=== PATIENT | male | born 1975 | race Two or more races ===

== ENCOUNTER 2024-05-19 07:24 | Emergency (ER) | payer MEDICAID, SELFPAY ==
[2024-05-19 07:34] VITALS: BP 117/75; PULSE 81; RESP 16; TEMP 37.2; O2SAT 97; BMI 29.3
--- NOTE | 2024-05-19 07:37 | XR_ITS ---
Examination: CT abdomen and pelvis without contrast. Coronal 3-D reconstructions. Sagittal 2-D reconstructions. Date and time of exam:May 19, 2024 at 0801 hrs. Comparison May 15, 2022 Indications: Painful urination lower pelvic pain beginning last night, history kidney stones on CT study May 15, 2022 CTDI: vol (mGy): 8.46 DLP: (mGycm): 537 Technique: Axial images of the abdomen have been obtained, 3 mm slice thickness Intravenous contrast material has not been administered. Low dose protocols were performed. One or more of the following dose reduction techniques were used; automated exposure control, adjustment of the mA and/or KV according to patient size, use of iterative reconstruction technique. Findings: Trace pericardial thickening No liver or splenic lesion No gallstones No pancreatic or adrenal mass. Moderate left mild right renal parenchymal scar formation 1 mm 4 mm lower pole left renal calculi Minimal dilatation left renal calyces and proximal left ureter without ureteral calculi Aorta normal size Normal appendix No bowel obstruction No diverticulitis Normal seminal vesicles No prostatomegaly Contracted urinary bladder, minimal wall thickening Fat-containing inguinal hernias Impression: Moderate left mild right renal parenchymal scar formation Nonobstructing left renal calculi Minimal dilatation left renal calyces and proximal left ureter, consider urinary tract infection Cystitis pattern
[2024-05-19] MEDS: KETOROLAC INJ 30 MG/ML VIAL IM (07:47)
[2024-05-19] MEDS: HYDROcodone/APAP 5/325 TABLET 1 TAB PO (07:47)
[2024-05-19 07:57] LABS: Collection Type, Urine Clean Catch; Squamous Epithelial Cell,Urine 0 /hpf (0-5)
[2024-05-19 08:09] LABS: Basophils % (Auto) 1 % (0-2.5); Eosinophils # (Auto) 0.1 Thou/mm3 (0.0-0.5); Eosinophils % (Auto) 4 % (0-10); Hematocrit 42.1 % (41.0-53.0); Hemoglobin 14.5 g/dL (13.5-16.0); Immature Granulocytes % (Auto) 1 % (0-0); Immature Granulocytes Auto 0.02 Thou/mm3 (0.00-0.00); Lymphocytes # (Auto) 1.7 Thou/mm3 (1.0-4.8); Lymphocytes % (Auto) 54 % (10-50); Mean Corpuscular HGB Conc 34.4 g/dl (31.0-37.0); Mean Corpuscular Hemoglobin 30.3 pg (25.0-35.0); Mean Corpuscular Volume 88 fL (80-100); Monocytes # (Auto) 0.4 Thou/mm3 (0.0-0.8); Monocytes % (Auto) 11 % (0-12); Neutrophils # (Auto) 0.9 Thou/mm3 (1.8-7.7); Neutrophils % (Auto) 28 % (37-80); Nucleated Red Blood Cell % 0 /100 WBC (0); Platelet Count 225 Thou/mm3 (140-440); RDW Standard Deviation 43.6 fL (35.1-43.9); Red Blood Count 4.78 Miln/mm3 (4.50-5.90); White Blood Count 3.2 Thou/mm3 (3.8-10.6)
[2024-05-19 08:15] LABS: Bilirubin,Urine Negative (Negative); Blood,Urine Negative (Negative); Clarity,Urine Clear (Clear/Hazy); Color,Urine Lt-Yellow (Lt Yel-Yel); Culture Indicated,Urine Not Indicated; Glucose, Urine Negative (Negative); Ketones,Urine Negative (Negative); Leukocyte Esterase,Urine Negative (Negative); Nitrite,Urine Negative (Negative); Protein,Urine Negative (Neg - Trace); RBC,Urine 1 /hpf (0-3); Specific Gravity,Urine 1.024 (1.001-1.035); Urobilinogen,Urine Negative mg/dL (0.0-1.0); WBC,Urine 1 /hpf (0-5)
[2024-05-19 08:19] LABS: Alanine Aminotransferase 39 U/L (10-49); Albumin, Serum 4.5 gm/dL (3.5-5.0); Albumin/Globulin Ratio 1.6 (1.2-2.2); Alkaline Phosphatase 66 U/L (46-116); Anion Gap 4 (7-16); Aspartate Amino Transferase 25 U/L (0-34); BUN/Creatinine Ratio 14 Ratio (12-20); Bilirubin,Total 0.6 mg/dL (0.3-1.2); Blood Urea Nitrogen 14 mg/dL (9-23); Calcium 9.6 mg/dL (8.3-10.6); Calcium (Corrected) 9.6 mg/dL (8.5-10.1); Carbon Dioxide 27.3 mMol/L (20.0-31.0); Chloride 102 mMol/L (98-107); Estimated Creatinine Clearance 91.1 mL/min (>60); Globulin 2.9 gm/dL (2.3-3.5); Glucose 219 mg/dL (74-106); Lipase 36 U/L (12-53); Osmolality,Calculated 273 (275-295); Sodium 133 mMol/L (136-145); Total Protein 7.4 gm/dL (5.7-8.2); eGFR > 60 See Note
--- NOTE | 2024-05-19 08:50 | EDNOTE_ITS ---
ED Male Genitalurinary RME/HPI General Chief complaint: Urogenital-Male Stated complaint: BURNING W/URINATION Time Seen by Provider: 05/19/24 07:27 Arrival date/time: 05/19/24 07:24 49-year-old male presents to the emergency department today with complaints of dysuria patient reports history of renal stone patient reports no fever nausea vomiting Limitations: no limitations Related Data Previous Rx's ?Medication ?Instructions ?Recorded ondansetron 4 mg disintegrating 4 mg PO Q8H PRN nausea and 07/25/20 tablet vomiting #14 tabs hydrocodone 5 mg-acetaminophen 325 1 tab PO Q8H PRN pain #10 tabs 05/15/22 mg tablet ciprofloxacin HCl 500 mg tablet 500 mg PO BID 7 days #14 tabs 05/19/24 ibuprofen 800 mg tablet 800 mg PO TID PRN pain #30 tabs 05/19/24 Allergies Allergy/AdvReac Type Severity Reaction Status Date / Time No Known Allergies Allergy Verified 05/19/24 07:26 Review of Systems Review of Systems Systems Reviewed: All systems reviewed, normal except as documented Constitutional Constitutional: Reports system reviewed and no additional complaints, except as documented, Denies fever(s) and Denies headache(s) Eyes Eyes: Reports system reviewed and no additional complaints, except as documented and Denies blurry vision ENT Ears, Nose, Mouth, and Throat: Reports system reviewed and no additional complaints, except as documented, Denies headache(s), Denies nasal congestion and Denies nasal discharge Cardiovascular Cardiovascular: Reports system reviewed and no additional complaints, except as documented, Denies chest pain and Denies dyspnea Respiratory Respiratory: Reports system reviewed and no additional complaints, except as do cumented, Denies chest congestion, Denies cough and Denies dyspnea Gastrointestinal Gastrointestinal: Reports system reviewed and no additional complaints, except as documented and Denies abdominal pain Genitourinary Genitourinary: Reports system reviewed and no additional complaints, except as documented and Reports other (Dysuria) Integumentary/Breasts Skin/Breast: Reports system reviewed and no additional complaints, except as documented and Denies rash Neurologic Neurologic: Reports system reviewed and no additional complaints, except as documented, Reports as per HPI and Denies headache(s) Past Medical History Past Medical History CARDIAC: Positive Hypercholesterolemia; Negative Cardiac Disorders or Congestive Heart Failure RESPIRATORY: Negative Chronic Obstructive Pulmonary Disease (COPD) or Asthma GENITOURINARY: Negative Renal Disease ENDOCRINE: Negative Diabetes Mellitus Type 1 or Diabetes Mellitus Type 2 HEMATOLOGIC: Negative Sickle Cell Disease Social History SMOKING STATUS: Never smoker SUBSTANCE USE: does not use ED Exam General Limitations: Present no limitations General appearance: Present alert and in no apparent distress Head Head exam: Present atraumatic, normocephalic and normal inspection Eye Eye exam: Present normal appearance, PERRL and EOMI; Absent conjunctival injection ENT ENT exam: Present normal exam, normal oropharynx and mucous membranes moist Neck Neck exam: Present normal inspection, full ROM and trachea midline Chest Chest inspection: Present normal inspection and symmetric chest wall rise Respiratory Respiratory exam: Present normal lung sounds bilaterally; Absent respiratory distress Cardiovascular Cardiovascular exam: Present regular rate, normal rhythm and normal heart sounds Abdominal Exam Abdominal exam: Present soft; Absent distention, tenderness, guarding, rebound or rigidity Extremities Exam Extremities exam: Present normal inspection and full ROM Back Exam Back exam: Present normal inspection and full ROM Neurological Exam Neurological exam: Present alert, oriented X3 and CN II-XII intact Psychiatric Psychiatric exam: Present normal affect and normal mood Skin Skin exam: Present warm, dry, intact and normal color Course Quality Measures none Orders Category Date Time Status CT abdomen pelvis wo con Stat Exams 05/19/24 07:37 Completed A1C [Glycohemoglobin w (eAG)] Stat Lab 05/19/24 07:49 Completed CBC Stat Lab 05/19/24 07:49 Completed Comprehensive Metabolic Panel Stat Lab 05/19/24 07:49 Completed Lipase Stat Lab 05/19/24 07:49 Completed UA, C/S IF [Urinalysis, C/S if Indicated] Stat Lab 05/19/24 07:50 Completed HYDROcodone*/APAP 5/325 [[place] 5/325] Med 05/19/24 07:38 Discontinued 1 tab PO X1 ONE Ketorolac Inj [Toradol Inj] Med 05/19/24 07:38 Discontinued 30 mg IM X1 ONE Vital Signs Vital signs: Vital Signs Temperature 98.9 F 05/19/24 07:34 Pulse Rate 81 05/19/24 07:34 Respiratory Rate 16 05/19/24 07:34 Blood Pressure 117/75 05/19/24 07:34 Pulse Oximetry (%) 97 05/19/24 07:34 Oxygen Delivery Method Room Air 05/19/24 07:34 O2 saturation 97% room air within normal limits Urogenital - Male MDM Narrative MDM Narrative:: 49-year-old male presents to the emergency department today with complaints of dysuria patient reports history of renal stone patient reports no fever nausea vomiting On exam patient does not appear ill or toxic in no acute distress Patient is nontender abdomen Lab work obtained lab work unremarkable other than the patient's blood sugar is elevated As patient has dysuria CT scan consistent with cystitis patient will treat with course of antibiotics A1c obtained does confirm diabetes I explained to the patient before he left that I would contact his brother who is a physician and he will speak with him about the results of the A1c he gave me permission to do this Patient's A1c did come back elevated I spoke with patient's brother Dr. Silva who will discuss further management of the diabetes Patient discharged home in no distress to follow-up with primary care doctor in the next 24 to 48 hours and for any worsening symptoms to return to the ER immediately Patient data External records reviewed:: [facility] previous records Clinical information provided by:: patient Social determinants that could affect healthcare access:: none Patient has the following chronic illnesses:: none How is presenting disease/condition affected by chronic disease/condition?: uneffected by Evaluation data The following diagnostics were reviewed and interpreted by me:: lab results and radiology exam(s) Lab and/or radiology exams considered but not ordered:: Labs radiology obtain Interpretation Summary: Reviewed by me Medications / Prescriptions Medications or Prescriptions considered but not ordered:: Given Medication administrations:: Medication Administration History Discontinued Medications Hydrocodone Bitart/Acetaminophen (Hydrocodone/Apap 5/325 Tablet) 1 tab PO X1 ONE Stop: 05/19/24 07:39 Last Admin: 05/19/24 07:47 Dose: 1 tab Documented By: DO Ketorolac Tromethamine (Ketorolac Inj 30 Mg/Ml Vial) 30 mg IM X1 ONE Stop: 05/19/24 07:39 Last Admin: 05/19/24 07:47 Dose: 30 mg Documented By: DO given Consultations Consultation(s) initiated? (list below): No Diagnosis Urogenital Male Differential Diagnosis: urinary tract infection and other (Cystitis) Most likely diagnosis given after review of the tests above:: Cystitis Admission Indicated Admission indicated?: not indicated Admission Request Was there a request for admission?: No Disposition Plan Disposition Plan: Discharge Discharge Attestation Discharge Attestation: The patient and all family members were given an opportunity to ask questions and understood the discharge instructions. Discharge instructions specifically effects, indications for sooner follow up or return to the emergency department, and the expected course of current diagnosis. Patient condition: Stable Discharge Plan Plan Patient Disposition: HOME (Self Care) Disposition Comment: stable Prescriptions/Referrals Prescriptions/Med Rec: New ibuprofen 800 mg tablet 800 mg PO TID PRN (Reason: pain) Qty: 30 0RF ciprofloxacin HCl 500 mg tablet 500 mg PO BID 7 Days Qty: 14 0RF No Action ondansetron 4 mg tablet,disintegrating 4 mg PO Q8H PRN (Reason: nausea and vomiting) Qty: 14 0RF hydrocodone-acetaminophen 5-325 mg tablet 1 tab PO Q8H MDD 10 PRN (Reason: pain) Qty: 10 0RF Referrals: Jose Luis Gabriel MD [Primary Care Provider] - 05/20/24 Problem List Clinical Impression: Cystitis Patient/Caregiver Discharge Instructions Education Materials: Understanding Urinary Tract ... Additional Instructions: Please follow up with your primary care doctor in the next 24-48hrs for any worsening symptoms return here immediately Print Language: Turkish Stand Alone Forms: Emiila Award Info., Patient Portal Info Letter PA/NEHEMIAH Supervising Physician ESSENCE/NEHEMIAH Supervising Physician: dr schwartz
[2024-05-19 08:53] LABS: Glucose Estimated Average 166 mg/dL (80-131); Hemoglobin A1C 7.4 % Hgb (4.8-6.0)
== END 2024-05-19 08:59 | disposition home or self-care (01) ==
PROVIDERS: Nurse Practitioner Primary Care; Emergency Provider Emergency Medicine; PCP Family Medicine
DX: N30.90 Cystitis, unspecified without hematuria (principal)
CPT/HCPCS: 36415; 74176; 80053; 81001; 83036; 83690; 85025; 96372; 99284; J1885; A9270

== ENCOUNTER 2024-10-20 08:36 | Emergency (ER) | payer MEDICAID, SELFPAY ==
[2024-10-20 08:58] VITALS: BP 139/80; PULSE 99; RESP 16; TEMP 36.7; O2SAT 97
[2024-10-20 09:06] VITALS: BMI 29.7
--- NOTE | 2024-10-20 09:28 | PD.EDRME ---
Rapid Medical Screening Exam RME Arrival date/time: 10/20/24 08:36 This is a 49-year-old male comes in with complaints of dysuria. Patient states he has a history of kidney stones. Patient has also had UTIs in the past. I have greeted and performed a focused initial assessment of this patient. Initial appropriate labs ordered at this time. A comprehensive ED assessment and evaluation of the patient and analysis of all test and completion of medical decision making process will be conducted by additional ED provider. Chief Complaint: Urogenital-Male Time Seen by Provider: 10/20/24 09:08 Vital signs: Vital Signs Temperature 98.1 F 10/20/24 08:58 Pulse Rate 99 10/20/24 08:58 Respiratory Rate 16 10/20/24 08:58 Blood Pressure 139/80 H 10/20/24 08:58 Pulse Oximetry (%) 97 10/20/24 08:58 Oxygen Delivery Method Room Air 10/20/24 08:58
[2024-10-20 09:40] LABS: Collection Type, Urine Voided; Squamous Epithelial Cell,Urine 0 /hpf (0-5)
[2024-10-20 09:48] LABS: Basophils # (Auto) 0.1 Thou/mm3 (0.0-0.2); Basophils % (Auto) 2 % (0-2.5); Eosinophils # (Auto) 0.2 Thou/mm3 (0.0-0.5); Eosinophils % (Auto) 5 % (0-10); Hematocrit 40.9 % (41.0-53.0); Hemoglobin 14.3 g/dL (13.5-16.0); Immature Granulocytes % (Auto) 0 % (0-0); Immature Granulocytes Auto 0.01 Thou/mm3 (0.00-0.00); Lymphocytes # (Auto) 1.7 Thou/mm3 (1.0-4.8); Lymphocytes % (Auto) 49 % (10-50); Mean Corpuscular Hemoglobin 30.8 pg (25.0-35.0); Mean Corpuscular Volume 88 fL (80-100); Monocytes # (Auto) 0.4 Thou/mm3 (0.0-0.8); Monocytes % (Auto) 12 % (0-12); Neutrophils # (Auto) 1.1 Thou/mm3 (1.8-7.7); Neutrophils % (Auto) 31 % (37-80); Nucleated Red Blood Cell % 0 /100 WBC (0); Platelet Count 218 Thou/mm3 (140-440); RDW Standard Deviation 42.6 fL (35.1-43.9); Red Blood Count 4.64 Miln/mm3 (4.50-5.90); White Blood Count 3.4 Thou/mm3 (3.8-10.6)
[2024-10-20 09:49] LABS: Bilirubin,Urine Negative (Negative); Blood,Urine Negative (Negative); Clarity,Urine Clear (Clear/Hazy); Color,Urine Lt-Yellow (Lt Yel-Yel); Culture Indicated,Urine Not Indicated; Glucose, Urine Negative (Negative); Ketones,Urine Negative (Negative); Leukocyte Esterase,Urine Negative (Negative); Nitrite,Urine Negative (Negative); PH,Urine 6.5 (5.0-7.0); Protein,Urine Negative (Neg - Trace); RBC,Urine 1 /hpf (0-3); Specific Gravity,Urine 1.023 (1.001-1.035); Urobilinogen,Urine Negative mg/dL (0.0-1.0); WBC,Urine < 1 /hpf (0-5)
[2024-10-20 10:05] LABS: Alanine Aminotransferase 24 U/L (10-49); Albumin, Serum 4.4 gm/dL (3.5-5.0); Alkaline Phosphatase 60 U/L (46-116); Anion Gap 6 (7-16); Aspartate Amino Transferase 20 U/L (0-34); BUN/Creatinine Ratio 11 Ratio (12-20); Bilirubin,Total 0.8 mg/dL (0.3-1.2); Blood Urea Nitrogen 11 mg/dL (9-23); Calcium 9.7 mg/dL (8.3-10.6); Calcium (Corrected) 9.7 mg/dL (8.5-10.1); Chloride 102 mMol/L (98-107); Estimated Creatinine Clearance 91.6 mL/min (>60); Globulin 2.2 gm/dL (2.3-3.5); Glucose 193 mg/dL (74-106); Osmolality,Calculated 276 (275-295); Potassium 3.8 mMol/L (3.4-5.1); Sodium 136 mMol/L (136-145); Total Protein 6.6 gm/dL (5.7-8.2); eGFR > 60 See Note
--- NOTE | 2024-10-20 11:55 | EDNOTE_ITS ---
ED Male Genitalurinary RME/HPI General Chief complaint: Urogenital-Male Stated complaint: CAN'T PEE Time Seen by Provider: 10/20/24 09:08 Source: patient Arrival date/time: 10/20/24 08:36 Limitations: no limitations RME / HPI RME / HPI Narrative: 10/20/24 08:36 This is a 49-year-old male comes in with complaints of dysuria. Patient states he has a history of kidney stones. Patient has also had UTIs in the past. I have greeted and performed a focused initial assessment of this patient. Initial appropriate labs ordered at this time. A comprehensive ED assessment and evaluation of the patient and analysis of all test and completion of medical decision making process will be conducted by additional ED provider. 11:55 Patient is a 49-year-old male who is here today 1 day history of frequent dysuria and penile discharge. Denies any abdominal pain, nausea, vomiting. He has no testicular pain. He states he is sexually active with his , his last time he had sex was 1 month ago. Denies any other partners. He has a history of UTI and also nephrolithiasis. Related Data Previous Rx's ?Medication ?Instructions ?Recorded ondansetron 4 mg disintegrating 4 mg PO Q8H PRN nausea and 07/25/20 tablet vomiting #14 tabs hydrocodone 5 mg-acetaminophen 325 1 tab PO Q8H PRN pa in #10 tabs 05/15/22 mg tablet ibuprofen 800 mg tablet 800 mg PO TID PRN pain #30 t abs 05/19/24 Allergies Allergy/AdvReac Type Severity Reaction Status Date / Time No Known Allergies Allergy Verified 10/20/24 08:38 Review of Systems Review of Systems Systems Reviewed: All systems reviewed, normal except as documented ED Exam General Limitations: Present no limitations General appearance: Present alert and in no apparent distress Head Head exam: Present atraumatic Eye Eye exam: Present normal appearance, PERRL and EOMI ENT ENT exam: Present normal exam, normal oropharynx and mucous membranes moist Neck Neck exam: Present normal inspection, full ROM and trachea midline Chest Chest inspection: Present normal inspection and symmetric chest wall rise Respiratory Respiratory exam: Present normal lung sounds bilaterally Cardiovascular Cardiovascular exam: Present regular rate, normal rhythm and normal heart sounds Abdominal Exam Abdominal exam: Present soft and normal bowel sounds Extremities Exam Extremities exam: Present normal inspection and full ROM Back Exam Back exam: Present normal inspection and full ROM Neurological Exam Neurological exam: Present alert, oriented X3 and CN II-XII intact Psychiatric Psychiatric exam: Present normal affect and normal mood Skin Skin exam: Present warm, dry, intact and normal color Course Quality Measures none Orders Category Date Time Status CBC Stat Lab 10/20/24 09:41 Completed Chlamydia/GC/TV - PCR Stat Lab 10/20/24 Ordered Comprehensive Metabolic Panel Stat Lab 10/20/24 09:41 Completed Urinalysis, C/S if Indicated Stat Lab 10/20/24 09:37 Completed Vital Signs Vital signs: Vital Signs Temperature 98.1 F 10/20/24 08:58 Pulse Rate 99 10/20/24 08:58 Respiratory Rate 16 10/20/24 08:58 Blood Pressure 139/80 H 10/20/24 08:58 Pulse Oximetry (%) 97 10/20/24 08:58 Oxygen Delivery Method Room Air 10/20/24 08:58 Urogenital - Male MDM Narrative MDM Narrative:: 49-year-old male is here today with a 1 day history of dysuria and penile discharge. He has a history of UTI and nephrolithiasis. Urinalysis here is unremarkable. CBC and CMP are unremarkable. GC screen was requested. Discussed empiric treatment. I believe there was a language barrier initially and the patient might be asking for a prescription to be sent to a pharmacy in [place]. An audio visual equipment rental clerk was requested. Patient then spoke with the nursing staff and stated he is leaving the hospital and did not want any treatment. Patient data [facility] records reviewed:: [facility] previous records Clinical information provided by:: patient Social determinants that could affect healthcare access:: none Patient has the following chronic illnesses:: n/a How is presenting disease/condition affected by chronic disease/condition?: no chronic disease Evaluation data The following diagnostics were reviewed and interpreted by me:: lab results Lab and/or radiology exams considered but not ordered:: n/a Interpretation Summary: CBC, CMP, and urinalysis are unremarkable. Medications / Prescriptions Medications or Prescriptions considered but not ordered:: Ceftriaxone, doxycycline, azithromycin Medication administrations:: n/a Consultations Consultation(s) initiated? (list below): No Diagnosis Urogenital Male Differential Diagnosis: other (Urethritis, gonorrhea, chlamydia, UTI) Most likely diagnosis given after review of the tests above:: Urethritis Admission Indicated Admission indicated?: not indicated Admission Request Was there a request for admission?: No Disposition Plan Disposition Plan: other (specify) (Patient eloped) Discharge Plan Plan Patient Disposition: Elopement Patient condition on transfer: Stable Prescriptions/Referrals Prescriptions/Med Rec: No Action ondansetron 4 mg tablet,disintegrating 4 mg PO Q8H PRN (Reason: nausea and vomiting) Qty: 14 0RF ibuprofen 800 mg tablet 800 mg PO TID PRN (Reason: pain) Qty: 30 0RF hydrocodone-acetaminophen 5-325 mg tablet 1 tab PO Q8H MDD 10 PRN (Reason: pain) Qty: 10 0RF Referrals: Jose Luis Gabriel MD [Primary Care Provider] - In 1 week Problem List Clinical Impression: Dysuria Patient/Caregiver Discharge Instructions Print Language: Malawian
--- NOTE | 2024-10-20 11:56 | PC.NURSE ---
PT WALKED UP TO MYSELF AND STATED I DON'T NEED A SHOT, I'M GOING TO [place] AND PT PRECEDED TO WALK OUT THE DOOR. ATTEMPTED TO SPEAK WITH PT AND ENCOURAGE TO STAY BUT PT WALKED OFF
[2024-10-20 14:53] LABS: Chlamydia trachomatis PCR Negative (Not Detect); Neisseria Gonorrhoeae DNA PCR Negative (Not Detect); Trichomonas Negative (Negative)
== END 2024-10-20 12:17 | disposition left against medical advice (07) ==
PROVIDERS: Nurse Practitioner Family; Physician Assistant Medical; Emergency Provider Family Medicine; PCP Family Medicine
DX: R30.0 Dysuria (principal); Z87.440 Personal history of urinary (tract) infections; Z87.442 Personal history of urinary calculi
CPT/HCPCS: 36415; 80053; 81001; 85025; 87491; 87591; 87661; 99281

== ENCOUNTER 2025-02-08 20:35 | Emergency (ER) | payer MEDICAID, SELFPAY ==
[2025-02-08 20:36] VITALS: BMI 32.3
[2025-02-08 20:47] VITALS: BP 115/70; PULSE 84; RESP 20; TEMP 37.1; O2SAT 96
--- NOTE | 2025-02-08 20:52 | XR_ITS ---
EXAMINATION: Cervical spine 4 views TECHNIQUE: AP, lateral, swimmer's lateral, AP odontoid cervical spine 4 views Date and time: February 08, 2025, 2118 hours INDICATIONS: Injury to the neck today, neck pain FINDINGS: Satisfactory alignment cervical vertebral bodies 6 There is no diagnostic visualization of C7 The odontoid is intact IMPRESSION: Limited study with no acute fracture Recommend repeat swimmer's lateral view to assess C7
--- NOTE | 2025-02-08 20:52 | XR_ITS ---
Examination: Shoulder, right, 3 views Technique: Shoulder AP internal rotation, AP external rotation, Y view shoulder, 3 views Exam date and time : February 08, 2025, 2113 hours INDICATIONS: Right shoulder pain beginning 2 days ago. FINDINGS: Moderate narrowing glenohumeral joint No shoulder fracture or dislocation No calcific tendinitis IMPRESSION: Moderate narrowing glenohumeral joint
[2025-02-08] MEDS: DEXAMETHASONE SOD PHOS INJ 10 MG/ML VIAL IM (21:37)
[2025-02-08] MEDS: KETOROLAC INJ 60 MG/2 ML VIAL IM (21:38)
[2025-02-08] MEDS: HYDROcodone/APAP 5/325 TABLET 1 TAB PO (21:38)
--- NOTE | 2025-02-09 00:26 | EDNOTE_ITS ---
ED Extremity Problem RME/HPI General Chief complaint: Extremity Problem,Nontraumatic Stated complaint: RIGHT SHOULDER PAIN Time Seen by Provider: 02/08/25 20:36 Arrival date/time: 02/08/25 20:35 This is a case of 50-year-old male who came in in the emergency room due to right neck pain and right shoulder pain after lifting heavy object patient due to worsening of the symptoms this patient decided to sought consult here in the emergency room denies any numbness weakness tingling sensation or incontinence to urine or stool denies any headache or dizziness Limitations: no limitations Related Data Previous Rx's ?Medication ?Instructions ?Recorded ondansetron 4 mg disintegrating 4 mg PO Q8H PRN nausea and 07/25/20 tablet vomiting #14 tabs hydrocodone 5 mg-acetaminophen 325 1 tab PO Q8H PRN pa in #10 tabs 05/15/22 mg tablet ibuprofen 800 mg tablet 800 mg PO TID PRN pain #30 t abs 05/19/24 cyclobenzaprine 10 mg tablet 10 mg PO BID PRN muscle s pasm #10 02/08/25 tabs hydrocodone 5 mg-acetaminophen 325 1 tab PO Q6H PRN pa in #16 tabs 02/08/25 mg tablet methylprednisolone 4 mg tablets in 4 mg PO QAM #21 tab s 02/08/25 a dose pack (Medrol (Ambrosio)) Allergies Allergy/AdvReac Type Severity Reaction Status Date / Time No Known Allergies Allergy Verified 02/08/25 20:36 Review of Systems Review of Systems Systems Reviewed: All systems reviewed, normal except as documented Constitutional Constitutional: Reports system reviewed and no additional complaints, except as documented and Reports as per HPI ENT Ears, Nose, Mouth, and Throat: Reports neck pain Cardiovascular Cardiovascular: Reports system reviewed and no additional complaints, except as documented Respiratory Respiratory: Reports system reviewed and no additional complaints, except as documented and Reports as per HPI Gastrointestinal Gastrointestinal: Reports system reviewed and no additional complaints, except as documented and Reports as per HPI Musculoskeletal Musculoskeletal: Reports system reviewed and no additional complaints, except as documented, Reports as per HPI, Reports neck pain and Reports other (Shoulder pain) Neurologic Neurologic: Reports system reviewed and no additional complaints, except as documented and Reports as per HPI Past Medical History Past Medical History CARDIAC: Positive Hypercholesterolemia; Negative Cardiac Disorders or Congestive Heart Failure RESPIRATORY: Negative Chronic Obstructive Pulmonary Disease (COPD) or Asthma GENITOURINARY: Negative Renal Disease ENDOCRINE: Negative Diabetes Mellitus Type 1 or Diabetes Mellitus Type 2 HEMATOLOGIC: Negative Sickle Cell Disease Social History SMOKING STATUS: Never smoker SUBSTANCE USE: does not use ED Exam General Limitations: Present no limitations General appearance: Present alert, in no apparent distress and other (Patient is awake alert oriented not in distress nontoxic looking well-hydrated well- nourished) Head Head exam: Present atraumatic, normocephalic and normal inspection Eye Eye exam: Present normal appearance, PERRL and EOMI ENT ENT exam: Present normal exam, normal oropharynx and mucous membranes moist Neck Neck exam: Present normal inspection, full ROM, trachea midline, tenderness (Mild tenderness on the right side of the neck no crepitation no deformity no redness no swelling no cellulitis ROM intact neurovascular intact) and other (No paraspinal tenderness no paravertebral tenderness leg raise exam is normal no CVA tenderness steady); Absent meningismus, lymphadenopathy or thyromegaly Chest Chest inspection: Present normal inspection and symmetric chest wall rise; Absent tenderness or rash Respiratory Respiratory exam: Present normal lung sounds bilaterally; Absent respiratory distress, wheezes, stridor, accessory muscle use or prolonged expiratory phase Cardiovascular Cardiovascular exam: Present regular rate, normal rhythm and normal heart sounds; Absent bradycardia, tachycardia, irregular rhythm, systolic murmur or diastolic murmur Abdominal Exam Abdominal exam: Present soft and normal bowel sounds; Absent distention, tenderness, guarding, rebound, rigidity, diminished bowel sounds, hyperactive bowel sounds, hypoactive bowel sounds or organomegaly Extremities Exam Extremities exam: Present normal inspection and full ROM Expanded Upper Extremity Exam Shoulder exam: Present tenderness, swelling and other (Mild to moderate tenderness tenderness on the right shoulder with mild swelling no crepitation no deformity no redness no cellulitis ROM intact but with pain neurovascular intact); Absent abrasion, laceration, ecchymosis, deformity, crepitus, dislocation, erythema or tenderness over AC joint Back Exam Back exam: Present normal inspection and full ROM; Absent tenderness, CVA tenderness (R), CVA tenderness (L), muscle spasm, paraspinal tenderness, vertebral tenderness, rashes, sciatic notch tenderness (R), sciatic notch tenderness (L), straight leg raise (R) or straight leg raise (L) Neurological Exam Neurological exam: Present alert, oriented X3, CN II-XII intact, normal gait and reflexes normal; Absent motor sensory deficit Psychiatric Psychiatric exam: Present normal affect and normal mood Skin Skin exam: Present warm, dry, intact and normal color Course Quality Measures none Orders Category Date Time Status sling [Splint / Immobilizer] STAT Care 02/08/25 20:52 Completed XR cervical spine 2-3V Stat Exams 02/08/25 20:52 Completed XR shoulder RT min 2V Stat Exams 02/08/25 20:52 Completed Dexamethasone Inj [Decadron Inj] Med 02/08/25 20:52 Discontinued 10 mg IM X1 ONE HYDROcodone*/APAP 5/325 [[place] 5/325] Med 02/08/25 20:52 Discontinued 1 tab PO X1 ONE Ketorolac Inj [Toradol Inj] Med 02/08/25 20:52 Discontinued 60 mg IM X1 ONE Vital Signs Vital signs: Vital Signs Temperature 98.7 F 02/08/25 20:47 Pulse Rate 84 02/08/25 20:47 Respiratory Rate 20 02/08/25 20:47 Blood Pressure 115/70 02/08/25 20:47 Pulse Oximetry (%) 96 02/08/25 20:47 Oxygen Delivery Method Room Air 02/08/25 20:47 Extremity Problem MDM Narrative MDM Narrative:: This is a case of 50-year-old male who came in in the emergency room due to right neck pain and right shoulder pain after lifting heavy object patient due to worsening of the symptoms this patient decided to sought consult here in the emergency room denies any numbness weakness tingling sensation or incontinence to urine or stool denies any headache or dizziness physical examination patient is awake alert oriented not in distress nontoxic looking patient noted to have mild to moderate tenderness on the right shoulder and right side of the neck no crepitation no deformity no redness no swelling no cellulitis ROM intact but with pain pulses were full and equal capillary refill less than 2 seconds sensory is intact negative leg exam steady gait the rest of the physical examination neurological exam is normal and unremarkable x-ray showed no fracture no dislocation sling was applied patient tolerated well patient was given Toradol [place] and dexamethasone which patient condition markedly improved she was advised to follow-up with PCP in 2 days for reevaluation and if symptoms persist need to see an Ortho to have MRI to rule out rotator cuff injury and herniated disc worsening symptoms or any emergent concern return precaution in the ER is advised no signs and symptoms of cauda equina Patient was discharged with comfortable condition walking with stable gait. Patient verbalized no further complains explained diagnosis and answered patient question. Patient is comfortable with the proposed management plan including the need to follow up with his/her primary care physician and any specialist if applicable Discussed patient for any urgent condition or worsening sx, He/She needed to go to emergency room immediately or call 911. Patient acknowledge the responsibility to follow up as instructed and to monitor her/his symptoms. For any persistence of the symptoms for more than 3-5 days return precaution advised. Discussed the result of the test and was given printed discharge instruction Patient data External records reviewed:: [facility] previous records Clinical information provided by:: patient Social determinants that could affect healthcare access:: none Patient has the following chronic illnesses:: None How is presenting disease/condition affected by chronic disease/condition?: no chronic disease Evaluation data The following diagnostics were reviewed and interpreted by me:: radiology exam(s) Lab and/or radiology exams considered but not ordered:: Reviewed Interpretation Summary: Reviewed Medications / Prescriptions Medications or Prescriptions considered but not ordered:: Given Medication administrations:: Medication Administration History Discontinued Medications Hydrocodone Bitart/Acetaminophen (Hydrocodone/Apap 5/325 Tablet) 1 tab PO X1 ONE Stop: 02/08/25 20:53 Last Admin: 02/08/25 21:38 Dose: 1 tab Documented By: BD Dexamethasone Sodium Phosphate (Dexamethasone Sod Phos Inj 10 Mg/Ml Vial) 10 mg IM X1 ONE Stop: 02/08/25 20:53 Last Admin: 02/08/25 21:37 Dose: 10 mg Documented By: BD Ketorolac Tromethamine (Ketorolac Inj 60 Mg/2 Ml Vial) 60 mg IM X1 ONE Stop: 02/08/25 20:53 Last Admin: 02/08/25 21:38 Dose: 60 mg Documented By: BD Given Consultations Consultation(s) initiated? (list below): No Diagnosis Extremity Problem Differential Diagnosis: other (Neck muscle spasm right shoulder sprain) Most likely diagnosis given after review of the tests above:: Neck muscle spasm right shoulder sprain Admission Indicated Admission indicated?: not indicated Explain why admission is indicated or not indicated:: Not indicated Admission Request Was there a request for admission?: No Admission Attestation Admission request attestation: Not indicated Disposition Plan Disposition Plan: Discharge Discharge Attestation Discharge Attestation: The patient and all family members were given an opportunity to ask questions and understood the discharge instructions. Discharge instructions specifically effects, indications for sooner follow up or return to the emergency department, and the expected course of current diagnosis. Patient condition: Stable Discharge Plan Plan Patient Disposition: HOME (Self Care) Patient condition on transfer: Stable Prescriptions/Referrals Prescriptions/Med Rec: New methylprednisolone [Medrol (Ambrosio)] 4 mg tablets,dose pack 4 mg PO QAM Qty: 21 0RF cyclobenzaprine 10 mg tablet 10 mg PO BID PRN (Reason: muscle spasm) Qty: 10 0RF hydrocodone-acetaminophen 5-325 mg tablet 1 tab PO Q6H MDD max 4 tabs per day PRN (Reason: pain) Qty: 16 0RF No Action ondansetron 4 mg tablet,disintegrating 4 mg PO Q8H PRN (Reason: nausea and vomiting) Qty: 14 0RF ibuprofen 800 mg tablet 800 mg PO TID PRN (Reason: pain) Qty: 30 0RF hydrocodone-acetaminophen 5-325 mg tablet 1 tab PO Q8H MDD 10 PRN (Reason: pain) Qty: 10 0RF Referrals: Ada Sanches MD [Primary Care Provider, Family Practice] - In 1 week Problem List Clinical Impression: Neck muscle spasm, Shoulder sprain Patient/Caregiver Discharge Instructions Education Materials: ED Muscle Spasm, ED Neck Spasm, No Trauma, ED Shoulder Sprain, ED Sling, ED RICE Additional Instructions: Follow-up with your primary care physician in 2 days for reevaluation worsening symptoms or any emergent condition call 911 or go to the nearest emergency room if symptoms persist needs to see an Ortho to have MRI of the cervical and shoulder to rule out rotator cuff injury or herniated disc for any numbness weakness tingling sensation into incontinence to urine or stool return to the emergency room immediately or call 911 take your medication as directed do not take [place] and Flexeril as the same time ice pack every 2 hours for 20 minutes for 24 hours then alternate with warm compress keep the sling in place until cleared by your primary care physician Print Language: Azeri Stand Alone Forms: Emilia Award Info., Patient Portal Info Letter PA/ROLL HANDLER Supervising Physician PA/NEHEMIAH Supervising Physician: Dr. Sanjuanita Bobo
== END 2025-02-08 23:24 | disposition home or self-care (01) ==
PROVIDERS: Emergency Provider Emergency Medicine; PCP Family Medicine
DX: S43.409A Unspecified sprain of unspecified shoulder joint, initial encounter (principal); X50.0XXA Overexertion from strenuous movement or load, initial encounter
CPT/HCPCS: 72040; 73030; 96372; 99284; J1100; J1885; A9270